=== PATIENT | female | born 1995 | race Caucasian/White ===

== ENCOUNTER 2019-06-12 12:35 | Emergency (ER) | payer MEDICAID ==
[~2019-06-12] VITALS: Ht 160 cm; Wt 81.6 kg
[2019-06-12 12:55] VITALS: BP_SYST 125
[2019-06-12 14:09] VITALS: BP_SYST 124
== END 2019-06-12 14:09 | disposition home or self-care (01) ==
LOC: SED 12:35
DX: R22.0 Localized swelling, mass and lump, head (principal); T49.8X5A Adverse effect of other topical agents, initial encounter; Y92.89 Other specified places as the place of occurrence of the external cause
CPT/HCPCS: 99283

== ENCOUNTER 2020-07-19 22:33 | Inpatient (IN) | payer MEDICAID, SELFPAY ==
[~2020-07-19] VITALS: Ht 160 cm; Wt 83.0 kg
[2020-07-19 22:40] VITALS: BP_SYST 137
[2020-07-20 00:16] LABS: BASOPHILS # (AUTO) 0.1 K/uL (0.0-0.2); EOSINOPHILS # (AUTO) 0.1 K/uL (0.0-0.4); EOSINOPHILS % (AUTO) 0.9 % (0.0-4.0); HEMATOCRIT 34.4 % (36-48); HEMOGLOBIN 11.6 g/dL (12.0-16.0); LYMPHOCYTES # (AUTO) 2.2 K/uL (1.0-5.5); LYMPHOCYTES % (AUTO) 21.6 % (20.5-51.5); MEAN CORPUSCULAR HEMOGLOBIN 28 pg (27-31); MEAN CORPUSCULAR HGB CONC 34 % (32-36); MEAN CORPUSCULAR VOLUME 84 fL (79.0-98.0); MONOCYTES # (AUTO) 0.9 K/uL (0.0-1.0); MONOCYTES % (AUTO) 9.3 % (1.7-9.3); NEUTROPHILS # (AUTO) 6.8 K/uL (1.8-7.7); NEUTROPHILS % (AUTO) 67.2 % (40.0-70.0); PLATELET COUNT (AUTO) 366 K/uL (130-430); RED CELL DISTRIBUTION WIDTH 13.4 % (9.0-15.0); WHITE BLOOD COUNT (AUTO) 10.1 K/uL (4.8-10.8)
[2020-07-20 00:29] LABS: CALCIUM 9.2 mg/dL (8.4-11.0); CREATININE 0.77 mg/dL (0.55-1.30); POTASSIUM 3.7 mmol/L (3.5-5.1)
[2020-07-20 01:45] LABS: BILIRUBIN,URINE NEGATIVE (NEGATIVE); BLOOD, URINE 3+ (NEGATIVE); CLARITY/URINE SL CLOUDY (CLEAR); COLOR,URINE YELLOW (YELLOW); GLUCOSE,URINE NEGATIVE (NEGATIVE); KETONES,URINE NEGATIVE (NEGATIVE); LEUKOCYTE ESTERASE ,URINE NEGATIVE (NEGATIVE); NITRITE, URINE NEGATIVE (NEGATIVE); PH,URINE 5.5 (5.0-8.0); PROTEIN URINE TRACE (NEGATIVE); UROBILINOGEN,URINE 0.2 (0.2-1.0)
[2020-07-20 01:59] LABS: BACTERIA,URINE FEW /HPF (None Seen); WBC,URINE 0-3 /HPF (0-3)
[2020-07-20 02:02] LABS: PROTHROMBIN TIME 9.8 SECS (9.5-12.5)
[2020-07-20 06:21] VITALS: BP_SYST 98
[2020-07-20] MEDS: LR 1,000 ML IV SCH ×2 (07:45→16:15)
== END 2020-07-20 19:00 | disposition home or self-care (01) | DRG 566 ==
LOC: SED 22:33 → SPU 07-20 02:25 → SMU 07-20 03:23 → SPU 07-20 07:50
PROVIDERS: ADMIT Obstetrics & Gynecology; ATTEND Obstetrics & Gynecology
DX: O00.90 Unspecified ectopic pregnancy without intrauterine pregnancy (principal); Z20.822 Contact with and (suspected) exposure to COVID-19
CPT/HCPCS: 36415; 76801; 76817; 80048; 81000-TC; 84702-TC; 85025; 85610-TC; 86886; 86900; 86901; 99291

== ENCOUNTER 2020-08-09 14:08 | Observation (INO) | payer MEDICAID, SELFPAY ==
[~2020-08-09] VITALS: Ht 160 cm; Wt 83.0 kg
[2020-08-09 14:30] VITALS: BP_SYST 117
[2020-08-09] MEDS ORDERED: NACL 0.9% 1,000 ML IV ONE ×2 (14:30→15:15)
[2020-08-09 14:56] LABS: BASOPHILS # (AUTO) 0.1 K/uL (0.0-0.2); EOSINOPHILS # (AUTO) 0.1 K/uL (0.0-0.4); EOSINOPHILS % (AUTO) 1.5 % (0.0-4.0); HEMOGLOBIN 12.4 g/dL (12.0-16.0); LYMPHOCYTES # (AUTO) 1.6 K/uL (1.0-5.5); LYMPHOCYTES % (AUTO) 27.1 % (20.5-51.5); MEAN CORPUSCULAR HEMOGLOBIN 28 pg (27-31); MEAN CORPUSCULAR HGB CONC 33 % (32-36); MEAN CORPUSCULAR VOLUME 83 fL (79.0-98.0); MONOCYTES # (AUTO) 0.7 K/uL (0.0-1.0); MONOCYTES % (AUTO) 12.1 % (1.7-9.3); NEUTROPHILS # (AUTO) 3.4 K/uL (1.8-7.7); NEUTROPHILS % (AUTO) 58.3 % (40.0-70.0); PLATELET COUNT (AUTO) 366 K/uL (130-430); RED BLOOD CELL COUNT(AUTO) 4.45 MIL/uL (4.2-6.2); RED CELL DISTRIBUTION WIDTH 13.6 % (9.0-15.0); WHITE BLOOD COUNT (AUTO) 5.9 K/uL (4.8-10.8)
[2020-08-09] MEDS ORDERED: MORPHINE 4 MG/ML INJ. SYRINGE IVP ONE (15:00)
[2020-08-09] MEDS ORDERED: ONDANSETRON HCL 4 MG/2 ML VIAL IVP ONE (15:00)
[2020-08-09 15:08] LABS: CALCIUM 9.1 mg/dL (8.4-11.0); CREATININE 0.71 mg/dL (0.55-1.30); POTASSIUM 4.3 mmol/L (3.5-5.1)
[2020-08-09 15:11] LABS: PROTHROMBIN TIME 10.2 SECS (9.5-12.5)
[2020-08-09 15:18] LABS: ALBUMIN 3.8 g/dL (3.4-4.8); TOTAL BILIRUBIN 0.3 mg/dL (0.0-1.0)
[2020-08-09] MEDS ORDERED: ONDANSETRON HCL 4 MG/2 ML VIAL ONE (15:35)
[2020-08-09] MEDS ORDERED: KETOROLAC TROMETHAMINE 30 MG VIAL IVP ONE (17:15)
[2020-08-09] MEDS ORDERED: ONDANSETRON HCL 4 MG/2 ML VIAL IVP PRN (17:15)
[2020-08-09] MEDS ORDERED: OXYCODONE/ACETAMINOPHEN 5-325 TABLET PO ONE (17:15)
[2020-08-09 19:00] VITALS: BP_SYST 113
== END 2020-08-09 22:50 | disposition home or self-care (01) ==
LOC: SED 14:08 → SMU 16:30 → INTOOBSV 16:41 → SMU 16:41 → SPU 21:00
PROVIDERS: ADMIT Obstetrics & Gynecology; ATTEND Obstetrics & Gynecology
DX: O00.101 Right tubal pregnancy without intrauterine pregnancy (principal); Z20.828 Contact with and (suspected) exposure to other viral communicable diseases; K66.1 Hemoperitoneum; Z87.59 Personal history of other complications of pregnancy, childbirth and the puerperium
CPT/HCPCS: 36415; 59151; 80053; 84702; 85025; 85610; 86886; 86900; 86901; 87426; 88305; 96361; 96374; 96375; 99285; C1727; G0378; J2270; J2405

== ENCOUNTER 2020-09-28 14:30 | Emergency (ER) | payer MEDICAID, SELFPAY ==
[~2020-09-28] VITALS: Ht 160 cm; Wt 81.6 kg
[2020-09-28 14:30] VITALS: BP_SYST 120
--- NOTE | 2020-09-28 14:30 | NUR ---
BROUGHT BACK TO BED #8 AND TRIAGED. REPORT GIVEN TO DARY
--- NOTE | 2020-09-28 14:55 | NUR ---
DR FERNANDEZ IN TO ASSESS
[2020-09-28] MEDS ORDERED: PENICILLIN G BENZATHINE 1.2 MMU/2 ML SYR IM ONE (15:00)
--- NOTE | 2020-09-28 15:05 | NUR ---
SENT BY OB MD FOR INFECTION, PT DENIES SYMPTOMS, RESP UNLABORED, NO DISTRESS
--- NOTE | 2020-09-28 15:15 | NUR ---
MEDICATED ORDERED, PT CALM, ALERT, TOLERATED WELL
[2020-09-28 15:24] VITALS: BP_SYST 115
--- NOTE | 2020-09-28 15:24 | NUR ---
Patient given written and verbal discharge instructions and verbalizes understanding. ER MD discussed with patient the results and treatment provided. Patient in stable condition. ID arm band removed. . Patient educated on pain management and to follow up with PMD. Pain Scale 0/10 Opportunity for questions provided and answered. Medication side effect fact sheet provided.
== END 2020-09-28 15:24 | disposition home or self-care (01) ==
LOC: SED 14:30
DX: A53.9 Syphilis, unspecified (principal)
CPT/HCPCS: 96372; 99283; J0561

== ENCOUNTER 2020-10-05 13:37 | Emergency (ER) | payer MEDICAID ==
[~2020-10-05] VITALS: Ht 160 cm; Wt 81.6 kg
[2020-10-05 13:37] VITALS: BP_SYST 136
[2020-10-05] MEDS ORDERED: PENICILLIN G BENZATHINE 1.2 MMU/2 ML SYR IM ONE (14:15)
[2020-10-05] MEDS ORDERED: ACETAMINOPHEN 500 MG TABLET PO ONE (14:15)
[2020-10-05 14:37] VITALS: BP_SYST 130
== END 2020-10-05 14:33 | disposition home or self-care (01) ==
LOC: SED 13:37
DX: R68.89 Other general symptoms and signs (principal); A53.9 Syphilis, unspecified
CPT/HCPCS: 96372; 99283; J0561

== ENCOUNTER 2020-10-12 16:27 | Emergency (ER) | payer MEDICAID ==
[~2020-10-12] VITALS: Ht 160 cm; Wt 81.6 kg
[2020-10-12 16:44] VITALS: BP_SYST 137
[2020-10-12] MEDS ORDERED: PENICILLIN G BENZATHINE 1.2 MMU/2 ML SYR IM ONE (18:30)
[2020-10-12 18:42] VITALS: BP_SYST 137
== END 2020-10-12 18:42 | disposition home or self-care (01) ==
LOC: SED 16:27
DX: A53.9 Syphilis, unspecified (principal)
CPT/HCPCS: 96372; 99283; J0561

== ENCOUNTER 2021-03-04 22:00 | Emergency (ER) | payer MEDICAID ==
[~2021-03-04] VITALS: Ht 160 cm; Wt 82.6 kg
[2021-03-04 22:10] VITALS: BP_SYST 125
--- NOTE | 2021-03-04 22:13 | NUR ---
Patient triaged and placed in waiting room. VSS and patient appears in no acute distress at this time. Accompanied by self, awaiting available bed, and MD notified of need for MSE.
[2021-03-04 23:28] LABS: BILIRUBIN,URINE NEGATIVE (NEGATIVE); BLOOD, URINE 3+ (NEGATIVE); COLOR,URINE YELLOW (YELLOW); GLUCOSE,URINE 3+ (NEGATIVE); KETONES,URINE NEGATIVE (NEGATIVE); LEUKOCYTE ESTERASE ,URINE NEGATIVE (NEGATIVE); NITRITE, URINE NEGATIVE (NEGATIVE); PROTEIN URINE NEGATIVE (NEGATIVE); UROBILINOGEN,URINE 0.2 (0.2-1.0)
[2021-03-04 23:30] LABS: CLARITY/URINE SLIGHTLY CLOUDY (CLEAR)
[2021-03-04 23:37] LABS: BASOPHILS # (AUTO) 0.1 K/uL (0.0-0.2); BASOPHILS % (AUTO) 0.8 % (0.0-2.0); EOSINOPHILS # (AUTO) 0.1 K/uL (0.0-0.4); EOSINOPHILS % (AUTO) 1.3 % (0.0-4.0); HEMOGLOBIN 12.9 g/dL (12.0-16.0); LYMPHOCYTES % (AUTO) 21.8 % (20.5-51.5); MEAN CORPUSCULAR HEMOGLOBIN 29 pg (27-31); MEAN CORPUSCULAR HGB CONC 34 % (32-36); MEAN CORPUSCULAR VOLUME 85 fL (79.0-98.0); MONOCYTES # (AUTO) 0.9 K/uL (0.0-1.0); MONOCYTES % (AUTO) 10.1 % (1.7-9.3); NEUTROPHILS # (AUTO) 6.2 K/uL (1.8-7.7); PLATELET COUNT (AUTO) 344 K/uL (130-430); WHITE BLOOD COUNT (AUTO) 9.3 K/uL (4.8-10.8)
[2021-03-04 23:47] LABS: BACTERIA,URINE FEW /HPF (None Seen); WBC,URINE 0-3 /HPF (0-3)
--- NOTE | 2021-03-04 23:50 | NUR ---
ER at bedside examining patient.
--- NOTE | 2021-03-04 23:50 | NUR ---
PAtient ambulatory to bed 1 for evaluation
--- NOTE | 2021-03-04 23:50 | NUR ---
Patient came in to the emergency room c/o vaginal bleeding, mild, bright red in color. Patient reports 5 weeks gestation, , 1 AB, 1 miscarriage. Patient reports lower abdominal pain for two days. Pt denies fever, chills, or vomiting .Pt with nausea. Pt denies chest pain or SOB. Pt describes dull constant 3/10 suprapubic pain without radiation. Pt without treatment for pain. Pt denies dysuria. Patient breathing easy, not in any distress. Patient VS within normal limits.
[2021-03-05] MEDS ORDERED: ONDA4TAB5 PO
[2021-03-05 00:13] VITALS: BP_SYST 122
--- NOTE | 2021-03-05 00:13 | NUR ---
Patient given written and verbal discharge instructions and verbalizes understanding. ER MD discussed with patient the results and treatment provided. Patient in stable condition. ID arm band removed. Rx of Zofran sent to preferred pharmacy. Patient educated on pain management and to follow up with PMD. Pain Scale 3/10.Opportunity for questions provided and answered.
== END 2021-03-05 00:13 | disposition home or self-care (01) ==
LOC: SED 22:00
DX: O20.0 Threatened abortion (principal); Z3A.01 Less than 8 weeks gestation of pregnancy
CPT/HCPCS: 36415; 76801; 76817; 81000; 84702; 85025; 99284

== ENCOUNTER 2021-03-14 14:59 | Emergency (ER) | payer MEDICAID ==
[~2021-03-14] VITALS: Ht 160 cm; Wt 82.6 kg
[~2021-03-14 14:59] MED LIST: ONDA4TAB5 PO
[2021-03-14 15:00] VITALS: BP_SYST 140
--- NOTE | 2021-03-14 15:00 | NUR ---
Patient triaged and placed in waiting room. VSS and patient appears in no acute distress at this time. Accompanied by SPOUSE, awaiting available bed, and MD notified of need for MSE.
--- NOTE | 2021-03-14 16:40 | NUR ---
Pt walked in to ER with c/o vaginal bleeding x1 day, reports being approx weeks . Denies any abdominal pain, n/v, no fevers. V/S stable, no acute distress noted.
--- NOTE | 2021-03-14 16:47 | NUR ---
DR ESCALERA EVALUATING PT IN TRIAGE ROOM
--- NOTE | 2021-03-14 16:50 | NUR ---
Patient transported to radiology via wheelchair, accompanied by staff.
[2021-03-14 17:54] LABS: BASOPHILS # (AUTO) 0.1 K/uL (0.0-0.2); BASOPHILS % (AUTO) 0.8 % (0.0-2.0); EOSINOPHILS # (AUTO) 0.1 K/uL (0.0-0.4); EOSINOPHILS % (AUTO) 0.7 % (0.0-4.0); HEMATOCRIT 38.1 % (36-48); LYMPHOCYTES # (AUTO) 2.3 K/uL (1.0-5.5); LYMPHOCYTES % (AUTO) 15.8 % (20.5-51.5); MEAN CORPUSCULAR HEMOGLOBIN 29 pg (27-31); MEAN CORPUSCULAR HGB CONC 34 % (32-36); MEAN CORPUSCULAR VOLUME 84 fL (79.0-98.0); MONOCYTES % (AUTO) 6.7 % (1.7-9.3); PLATELET COUNT (AUTO) 360 K/uL (130-430); RED BLOOD CELL COUNT(AUTO) 4.53 MIL/uL (4.2-6.2); RED CELL DISTRIBUTION WIDTH 14.2 % (9.0-15.0); WHITE BLOOD COUNT (AUTO) 14.5 K/uL (4.8-10.8)
[2021-03-14 18:17] LABS: PROTHROMBIN TIME 10.3 SECS (9.5-12.5)
--- NOTE | 2021-03-14 18:45 | NUR ---
Patient given written and verbal discharge instructions and verbalizes understanding. ER MD discussed with patient the results and treatment provided. Patient in stable condition. ID arm band removed. No prescriptions given. Patient educated on pain management and to follow up with PMD. Pain Scale 0. Opportunity for questions provided and answered. Medication side effect fact sheet provided.
[2021-03-14 18:49] VITALS: BP_SYST 140
== END 2021-03-14 18:45 | disposition home or self-care (01) ==
LOC: SED 14:59
DX: O20.9 Hemorrhage in early pregnancy, unspecified (principal); Z79.899 Other long term (current) drug therapy; Z3A.01 Less than 8 weeks gestation of pregnancy
CPT/HCPCS: 36415; 76801; 76805-TC; 76817; 84702; 85025; 85610-TC; 85730-TC; 86900; 86901; 99284

== ENCOUNTER 2021-03-15 17:50 | Emergency (ER) | payer MEDICAID ==
[~2021-03-15] VITALS: Ht 160 cm; Wt 82.6 kg
[2021-03-15 17:50] VITALS: BP_SYST 111
--- NOTE | 2021-03-15 17:50 | NUR ---
Patient triaged and placed in waiting room. VSS and patient appears in no acute distress at this time. Accompanied by SELF, awaiting available bed, and MD notified of need for MSE.
[2021-03-15 19:16] LABS: BASOPHILS # (AUTO) 0.1 K/uL (0.0-0.2); BASOPHILS % (AUTO) 0.8 % (0.0-2.0); EOSINOPHILS # (AUTO) 0.2 K/uL (0.0-0.4); EOSINOPHILS % (AUTO) 1.7 % (0.0-4.0); HEMATOCRIT 35.2 % (36-48); HEMOGLOBIN 12.1 g/dL (12.0-16.0); LYMPHOCYTES # (AUTO) 2.1 K/uL (1.0-5.5); LYMPHOCYTES % (AUTO) 23.2 % (20.5-51.5); MEAN CORPUSCULAR HEMOGLOBIN 29 pg (27-31); MEAN CORPUSCULAR HGB CONC 34 % (32-36); MEAN CORPUSCULAR VOLUME 85 fL (79.0-98.0); MONOCYTES # (AUTO) 1.1 K/uL (0.0-1.0); NEUTROPHILS # (AUTO) 5.7 K/uL (1.8-7.7); NEUTROPHILS % (AUTO) 62.3 % (40.0-70.0); PLATELET COUNT (AUTO) 338 K/uL (130-430); RED BLOOD CELL COUNT(AUTO) 4.14 MIL/uL (4.2-6.2); RED CELL DISTRIBUTION WIDTH 14.5 % (9.0-15.0); WHITE BLOOD COUNT (AUTO) 9.1 K/uL (4.8-10.8)
[2021-03-15 19:25] LABS: CALCIUM 8.7 mg/dL (8.4-11.0); CREATININE 0.75 mg/dL (0.55-1.30); POTASSIUM 4.2 mmol/L (3.5-5.1)
[2021-03-15 19:40] LABS: ALBUMIN 3.3 g/dL (3.4-4.8); TOTAL BILIRUBIN 0.2 mg/dL (0.0-1.0)
--- NOTE | 2021-03-15 19:45 | NUR ---
Patient ambulatory to bed 4 for evaluation
[2021-03-15] MEDS ORDERED: metHOTREXATe PF 50 MG/2 ML VIAL (25 MG/ML) IM ONE (20:00)
--- NOTE | 2021-03-15 20:00 | NUR ---
Assumed total care of patient. Patient AAO x4 from home reports she was told by Dr. Wayne to come here to receive methotrexate shot. Patient c/o left lower quadrant abdominal pain and vaginal bleeding x1 week. Patient reports she recently became and her hCG lab values have been fluctuating. Patient is being treated for an ectopic . Patient breathing even and unlabored, no signs of acute distress noted. Will continue to monitor.
--- NOTE | 2021-03-15 20:15 | NUR ---
ER Dr. Frank at bedside examining patient.
--- NOTE | 2021-03-15 20:19 | NUR ---
Patient medicated per MD order. Patient tolerated well. Will continue to monitor.
[2021-03-15 20:58] VITALS: BP_SYST 109
--- NOTE | 2021-03-15 20:58 | NUR ---
Patient given written and verbal discharge instructions and verbalizes understanding. ER MD discussed with patient the results and treatment provided. Patient in stable condition. ID arm band removed. No Rx given. Patient educated on pain management and to follow up with PMD. Pain Scale 0/10. Opportunity for questions provided and answered. Medication side effect fact sheet provided.
== END 2021-03-15 20:58 | disposition home or self-care (01) ==
LOC: SED 17:50
DX: O26.851 Spotting complicating pregnancy, first trimester (principal); Z79.899 Other long term (current) drug therapy; Z3A.01 Less than 8 weeks gestation of pregnancy
CPT/HCPCS: 36415; 80053; 84702; 85025; 96372; 99283; J9260

== ENCOUNTER 2021-03-21 20:11 | Emergency (ER) | payer MEDICAID, SELFPAY ==
[~2021-03-21] VITALS: Ht 160 cm; Wt 84.4 kg
--- NOTE | 2021-03-21 20:15 | NUR ---
Patient triaged and placed in waiting room. VSS and patient appears in no acute distress at this time. Accompanied by self , awaiting available bed, and MD notified of need for MSE.
--- NOTE | 2021-03-21 20:20 | NUR ---
Pt brought by self,A&Ox4, pt presents to ER with sore throat and congestion, skin pink and warm, cap refill <3, VSS, respirations even and unlabored.
[2021-03-21 20:26] VITALS: BP_SYST 138
--- NOTE | 2021-03-21 20:30 | NUR ---
Dr Segura evaluating patient at bedside
--- NOTE | 2021-03-21 21:08 | NUR ---
COVID PCR SWAB SENT TO LAB AFTER PERFORMED AT BEDSIDE
[2021-03-21 21:12] VITALS: BP_SYST 138
== END 2021-03-21 21:12 | disposition home or self-care (01) ==
LOC: SED 20:11
DX: B34.9 Viral infection, unspecified (principal); Z79.899 Other long term (current) drug therapy; Z20.822 Contact with and (suspected) exposure to COVID-19
CPT/HCPCS: 99283; C9803; U0003

== ENCOUNTER 2021-03-26 06:58 | Emergency (ER) | payer MEDICAID, SELFPAY ==
[~2021-03-26] VITALS: Ht 160 cm; Wt 83.0 kg
[2021-03-26 07:16] VITALS: BP_SYST 131
--- NOTE | 2021-03-26 07:20 | NUR ---
Patient to ER bed 7 to gown for evaluation. Side rails up. Report given to Letty CONROY.
--- NOTE | 2021-03-26 07:25 | NUR ---
Pt walked in to ER with c/o LLQ abdominal pain, 6/10 x2 days. Reports h/o ectopic with fallopian tube removal. Denies n/v or any fevers at this time. V/S stable, no acute distress noted.
--- NOTE | 2021-03-26 07:26 | NUR ---
ER at bedside examining patient.
--- NOTE | 2021-03-26 07:50 | NUR ---
Patient transported to radiology via wheelchair, accompanied by staff.
[2021-03-26 07:52] LABS: BASOPHILS # (AUTO) 0.1 K/uL (0.0-0.2); BASOPHILS % (AUTO) 0.7 % (0.0-2.0); EOSINOPHILS # (AUTO) 0.1 K/uL (0.0-0.4); HEMATOCRIT 35.1 % (36-48); HEMOGLOBIN 11.8 g/dL (12.0-16.0); LYMPHOCYTES # (AUTO) 2.1 K/uL (1.0-5.5); LYMPHOCYTES % (AUTO) 17.4 % (20.5-51.5); MEAN CORPUSCULAR HEMOGLOBIN 29 pg (27-31); MEAN CORPUSCULAR HGB CONC 34 % (32-36); MEAN CORPUSCULAR VOLUME 85 fL (79.0-98.0); MONOCYTES # (AUTO) 1.1 K/uL (0.0-1.0); NEUTROPHILS # (AUTO) 8.7 K/uL (1.8-7.7); NEUTROPHILS % (AUTO) 71.9 % (40.0-70.0); PLATELET COUNT (AUTO) 421 K/uL (130-430); RED BLOOD CELL COUNT(AUTO) 4.12 MIL/uL (4.2-6.2); RED CELL DISTRIBUTION WIDTH 14.2 % (9.0-15.0); WHITE BLOOD COUNT (AUTO) 12.1 K/uL (4.8-10.8)
[2021-03-26 09:33] VITALS: BP_SYST 131
== END 2021-03-26 09:33 | disposition home or self-care (01) ==
LOC: SED 06:58
DX: O00.80 Other ectopic pregnancy without intrauterine pregnancy (principal); R10.32 Left lower quadrant pain; Z79.899 Other long term (current) drug therapy
CPT/HCPCS: 36415; 76801; 76817; 84702; 85025; 99284

== ENCOUNTER 2021-05-26 17:46 | Emergency (ER) | payer MEDICAID, SELFPAY ==
[~2021-05-26] VITALS: Ht 162.6 cm; Wt 88.5 kg
[2021-05-26 17:50] VITALS: BP_SYST 117
[2021-05-26] MEDS ORDERED: IBUP-1969 PO (18:33)
[2021-05-26] MEDS ORDERED: PSEU30TA36 PO (18:33)
[2021-05-26 18:51] VITALS: BP_SYST 124
== END 2021-05-26 18:50 | disposition home or self-care (01) ==
LOC: SED 17:46
DX: J98.01 Acute bronchospasm (principal); Z20.822 Contact with and (suspected) exposure to COVID-19; Z79.899 Other long term (current) drug therapy
CPT/HCPCS: 36415; 71045; 81025; 99284

== ENCOUNTER → 2022-03-20 | Emergency (ER) | payer MEDICAID ==
[~2022-03-20] VITALS: Ht 160 cm; Wt 90.7 kg
[~2022-03-20] MED LIST changes: +CYCL10TA24 PO; +IBUP-1969 PO; +LIDO1ADH71 TD; +NAPR-690 PO; -ONDA4TAB5 PO; +PSEU30TA36 PO
[2022-03-20 15:23] VITALS: BP_SYST 126
== END | disposition left against medical advice (07) ==
LOC: SED 15:20
DX: M54.50 Low back pain, unspecified (principal); R10.2 Pelvic and perineal pain; Z53.21 Procedure and treatment not carried out due to patient leaving prior to being seen by health care provider

== ENCOUNTER 2022-03-21 00:03 | Emergency (ER) | payer MEDICAID ==
[~2022-03-21] VITALS: Ht 160 cm; Wt 93.0 kg
[~2022-03-21 00:03] MED LIST changes: -CYCL10TA24 PO; -LIDO1ADH71 TD; -NAPR-690 PO
[2022-03-21 00:15] VITALS: BP_SYST 127
--- NOTE | 2022-03-21 00:54 | NUR ---
Pt taken on a w/c to room 2. Pt c/o lower back pain that radiates to both of her legs. Pt denies trauma and sts it is a sudden onset of pain that she is having trouble walking. Pt repots 9/10 pain level. Assisted to bed and provided comfort. Pending ER MD barrios. Pmh: Denies
[2022-03-21 01:03] LABS: BILIRUBIN,URINE NEGATIVE (NEGATIVE); BLOOD, URINE NEGATIVE (NEGATIVE); CLARITY/URINE CLEAR (CLEAR); COLOR,URINE YELLOW (YELLOW); GLUCOSE,URINE NEGATIVE (NEGATIVE); KETONES,URINE NEGATIVE (NEGATIVE); LEUKOCYTE ESTERASE ,URINE NEGATIVE (NEGATIVE); NITRITE, URINE NEGATIVE (NEGATIVE); PH,URINE 6.5 (5.0-8.0); PROTEIN URINE NEGATIVE (NEGATIVE); UROBILINOGEN,URINE 0.2 (0.2-1.0)
--- NOTE | 2022-03-21 01:06 | NUR ---
DR Mortensen at bedside to denis pt.
[2022-03-21] MEDS ORDERED: HYDROcodone/ACETAMIN 5-325 MG TAB (NORCO/ VICODIN) PO ONE (01:15)
[2022-03-21] MEDS ORDERED: NAPR-690 PO (01:36)
[2022-03-21] MEDS ORDERED: LIDO1ADH71 TD (01:36)
[2022-03-21] MEDS ORDERED: CYCL10TA24 PO (01:36)
[2022-03-21 01:47] VITALS: BP_SYST 127
--- NOTE | 2022-03-21 01:49 | NUR ---
DC PT HOME AAOX4, NO SOB NOTED AND NOT IN ANY DISTRESS, DC INSTRUCTION, PRESCRITION AND WORK NOTE WERE GIVEMN TO PT AND TO HER MOTHER. ALSO INSTRUCTED TO F/U WITH HER PCP. SHE VERBALIZED UNDERSTANDING.
== END 2022-03-21 01:49 | disposition home or self-care (01) ==
LOC: SED 00:03
DX: S39.012A Strain of muscle, fascia and tendon of lower back, initial encounter (principal); Z79.899 Other long term (current) drug therapy; X58.XXXA Exposure to other specified factors, initial encounter; Y93.89 Activity, other specified; Y92.89 Other specified places as the place of occurrence of the external cause; Y99.8 Other external cause status
CPT/HCPCS: 81003; 81025; 99283

== ENCOUNTER 2022-03-23 19:16 | Emergency (ER) | payer MEDICAID ==
[~2022-03-23] VITALS: Ht 160 cm; Wt 90.7 kg
[~2022-03-23 19:16] MED LIST changes: +CYCL10TA24 PO; +LIDO1ADH71 TD; +NAPR-690 PO
[2022-03-23 19:57] VITALS: BP_SYST 133
--- NOTE | 2022-03-23 23:00 | NUR ---
First contact with this patient at this time. Patient presents to ED from home with c/o left sided lower back pain x2days. Patient reports pain level 8/10 at this time. Patient accompained by mother who is at bedside at this time. Patient A/Ox4, VSS, ambulatory, resp even and unlabored. Nad noted at this time.
--- NOTE | 2022-03-23 23:18 | NUR ---
ER MD Plaza at bedside speaking with patient regarding condition at this time.
[2022-03-23] MEDS ORDERED: HYDROmorphone 1 MG/ML INJ. CARTRIDGE IM ONE (23:30)
[2022-03-23] MEDS ORDERED: KETOROLAC TROMETHAMINE 60 MG/2 ML VIAL IM ONE (23:30)
[2022-03-23 23:48] LABS: BILIRUBIN,URINE NEGATIVE (NEGATIVE); BLOOD, URINE NEGATIVE (NEGATIVE); COLOR,URINE YELLOW (YELLOW); GLUCOSE,URINE NEGATIVE (NEGATIVE); KETONES,URINE NEGATIVE (NEGATIVE); LEUKOCYTE ESTERASE ,URINE NEGATIVE (NEGATIVE); NITRITE, URINE NEGATIVE (NEGATIVE); PROTEIN URINE NEGATIVE (NEGATIVE); UROBILINOGEN,URINE 0.2 (0.2-1.0)
[2022-03-23 23:51] LABS: CLARITY/URINE SLIGHTLY HAZY (CLEAR)
--- NOTE | 2022-03-24 00:14 | NUR ---
Patient resting comfortably in bed with side rails raised. Patient's mother at bedside. Nad noted at this time.
[2022-03-24] MEDS ORDERED: HYDR-3917 PO (01:39)
[2022-03-24 01:47] VITALS: BP_SYST 135
--- NOTE | 2022-03-24 01:47 | NUR ---
Patient given written and verbal discharge instructions and verbalizes understanding. ER MD discussed with patient the results and treatment provided. Patient in stable condition. ID arm band removed. Rx of Baker given. Patient educated on pain management and to follow up with PMD. Pain Scale 3/10. Opportunity for questions provided and answered. Medication side effect fact sheet provided. Patient A/Ox4, VSS, ambulatory, resp even and unlabored. Patient in stable condition and accompanied by mother upon discharge.
== END 2022-03-24 01:47 | disposition home or self-care (01) ==
LOC: SED 19:16
DX: M54.50 Low back pain, unspecified (principal); M79.662 Pain in left lower leg; Z79.899 Other long term (current) drug therapy
CPT/HCPCS: 99284; 72131; 76376; 81025; 81003; 96372; J1885; J1170

== ENCOUNTER 2022-08-29 09:45 | Emergency (ER) | payer MEDICAID ==
[~2022-08-29] VITALS: Ht 162.6 cm; Wt 95.3 kg
[~2022-08-29 09:45] MED LIST changes: +HYDR-3917 PO
[2022-08-29 09:52] VITALS: BP_SYST 128
[2022-08-29] MEDS ORDERED: ALBMDI INH (10:48)
[2022-08-29] MEDS ORDERED: BENZ100C92 PO (10:48)
[2022-08-29] MEDS ORDERED: GUAI-723 PO (10:48)
[2022-08-29 11:20] VITALS: BP_SYST 128
== END 2022-08-29 11:19 | disposition home or self-care (01) ==
LOC: SED 09:45
DX: J40 Bronchitis, not specified as acute or chronic (principal); J06.9 Acute upper respiratory infection, unspecified; R05.9 Cough, unspecified; R09.81 Nasal congestion; Z79.899 Other long term (current) drug therapy
CPT/HCPCS: 71045; 93005; 99283

== ENCOUNTER 2022-08-29 22:48 | Emergency (ER) | payer MEDICAID ==
[~2022-08-29] VITALS: Ht 162.6 cm; Wt 90.7 kg
[~2022-08-29 22:48] MED LIST changes: +ALBMDI INH; +BENZ100C92 PO; +GUAI-723 PO
[2022-08-29 23:00] VITALS: BP_SYST 130
--- NOTE | 2022-08-29 23:00 | NUR ---
Patient triaged and placed in waiting room. VSS and patient appears in no acute distress at this time. Accompanied by mother, awaiting available bed, and MD notified of need for MSE.
--- NOTE | 2022-08-30 00:25 | NUR ---
Covid and Influenza swab done and sent to the Lab.
--- NOTE | 2022-08-30 01:30 | NUR ---
ER examining patient in the waiting room.
--- NOTE | 2022-08-30 01:54 | NUR ---
Patient given written and verbal discharge instructions and verbalizes understanding. ER MD discussed with patient the results and treatment provided. Patient in stable condition. ID arm band removed. no Rx of given. Patient educated on pain management and to follow up with PMD. Pain Scale 0/10]. Opportunity for questions provided and answered. Medication side effect fact sheet provided.
[2022-08-30 01:55] VITALS: BP_SYST 125
== END 2022-08-30 01:55 | disposition home or self-care (01) ==
LOC: SED 22:48
DX: J10.1 Influenza due to other identified influenza virus with other respiratory manifestations (principal); R05.9 Cough, unspecified; R09.81 Nasal congestion; R06.02 Shortness of breath; Z79.899 Other long term (current) drug therapy; Z20.822 Contact with and (suspected) exposure to COVID-19
CPT/HCPCS: 36415; 99283

== ENCOUNTER 2023-06-07 16:34 | Emergency (ER) | payer MEDICAID ==
[~2023-06-07] VITALS: Ht 162.6 cm; Wt 82.6 kg
[2023-06-07 16:41] VITALS: BP_SYST 129; PULSE 82; RESP 18; TEMP 96.6; O2SAT 98
[2023-06-07 19:20] VITALS: BP_SYST 122; PULSE 80; RESP 17; TEMP 98; O2SAT 99
[2023-06-07 19:23] LABS: BILIRUBIN,URINE NEGATIVE (NEGATIVE); BLOOD, URINE NEGATIVE (NEGATIVE); CLARITY/URINE CLEAR (CLEAR); COLOR,URINE YELLOW (YELLOW); GLUCOSE,URINE 3+ (NEGATIVE); KETONES,URINE TRACE (NEGATIVE); LEUKOCYTE ESTERASE ,URINE NEGATIVE (NEGATIVE); NITRITE, URINE NEGATIVE (NEGATIVE); PH,URINE 5.5 (5.0-8.0); PROTEIN URINE NEGATIVE (NEGATIVE); UROBILINOGEN,URINE 0.2 (0.2-1.0)
[2023-06-07 19:49] LABS: BASOPHILS # (AUTO) 0.1 K/uL (0.0-0.2); BASOPHILS % (AUTO) 0.9 % (0.0-2.0); EOSINOPHILS # (AUTO) 0.2 K/uL (0.0-0.4); HEMOGLOBIN 13.7 g/dL (12.0-16.0); LYMPHOCYTES # (AUTO) 2.8 K/uL (1.0-5.5); MEAN CORPUSCULAR HEMOGLOBIN 28 pg (27-31); MEAN CORPUSCULAR HGB CONC 33 % (32-36); RED BLOOD CELL COUNT(AUTO) 4.85 MIL/uL (4.2-6.2)
[2023-06-07 19:54] LABS: HEMATOCRIT 41.2 % (36-48); LYMPHOCYTES % (AUTO) 27.5 % (20.5-51.5); MEAN CORPUSCULAR VOLUME 85 fL (79.0-98.0); MONOCYTES % (AUTO) 9.8 % (1.7-9.3); NEUTROPHILS % (AUTO) 59.8 % (40.0-70.0); PLATELET COUNT (AUTO) 279 K/uL (130-430); RED CELL DISTRIBUTION WIDTH 13.4 % (9.0-15.0); WHITE BLOOD COUNT (AUTO) 10.1 K/uL (4.8-10.8)
[2023-06-07 19:56] LABS: ANION GAP 10 (5-15); CALCIUM 9.8 mg/dL (8.4-11.0); CARBON DIOXIDE 26 mmol/L (23-29); CHLORIDE 99 mmol/L (98-107); CREATININE 0.66 mg/dL (0.55-1.30); GFR AFRICAN AMERICAN 137 mL/min (>90); GFR NON AFRICAN-AMERICAN 113 mL/min (>90); GLUCOSE 210 mg/dL (74-106); SODIUM SERUM 135 mmol/L (136-145); UREA NITROGEN, BLOOD 14 mg/dL (8-21)
[2023-06-07 20:03] LABS: ALANINE AMINOTRANSFERASE 100 U/L (12-78); ALBUMIN 3.7 g/dL (3.4-4.8); ASPARTATE AMINOTRANSFERASE 50 U/L (10-37); BILIRUBIN,DIRECT 0.1 mg/dL (0.0-0.3); TOTAL BILIRUBIN 0.3 mg/dL (0.0-1.0); TOTAL PROTEIN, SERUM 8.4 g/dL (6.4-8.3)
== END 2023-06-07 21:13 | disposition home or self-care (01) ==
LOC: SED 16:34
DX: R00.2 Palpitations (principal); R73.9 Hyperglycemia, unspecified; R07.89 Other chest pain; Z79.899 Other long term (current) drug therapy
CPT/HCPCS: 36415; 71045; 80048; 80076; 81001; 81003; 81025; 83880; 84484; 85025; 93005; 99285